=== PATIENT | male | born 1995 | race African-American/Black ===

== ENCOUNTER 2019-08-07 04:42 | Emergency (ER) | payer BC, OTHER ==
[~2019-08-07] VITALS: Ht 193 cm; Wt 91.0 kg
[2019-08-07 05:22] VITALS: BP 112/91
== END 2019-08-07 05:10 | disposition home or self-care (01) ==
LOC: ER 04:42
DX: Z00.00 Encounter for general adult medical examination without abnormal findings (principal); Z88.0 Allergy status to penicillin
CPT/HCPCS: 99281

== ENCOUNTER 2019-08-08 00:16 | Emergency (ER) | payer BC | END 2019-08-08 01:16 | disposition left against medical advice (07) | LOC: ER 00:16 | DX: N50.89 Other specified disorders of the male genital organs (principal); Z53.21 Procedure and treatment not carried out due to patient leaving prior to being seen by health care provider ==